=== PATIENT | female | born 1990 | race Caucasian/White ===

== ENCOUNTER 2023-06-24 11:41 | Emergency (ER) | payer OTHER, SELFPAY ==
[2023-06-24 11:58] VITALS: BP 133/80; PULSE 115; RESP 16; TEMP 37.5; O2SAT 99
--- NOTE | 2023-06-24 12:54 | ED.ABDPAIN ---
HPI - Abdominal Pain General Chief Complaint: Abdominal Pain Stated Complaint: right side pain,vomiting Time Seen by Provider: 06/24/23 12:58 Source: patient and RN notes reviewed Mode of arrival: ambulatory Limitations: no limitations History of Present Illness HPI narrative: 33-year-old female presenting for complaint of right-sided abdominal pain With nausea and vomiting since yesterday. Also reports decreased appetite. States the pain is improved only with lying flat. Pain is worse with walking up stairs, laughing, and certain movements. She has taken ibuprofen for symptoms without significant relief. She denies diarrhea, constipation, cough, shortness of breath or wheezing. Denies sick contacts. IUD in place. Related Data Home Medications Medication Instructions Recorded Confirmed bupropion HCl 300 mg 24 hr tablet, 300 mg PO DAILY 06/24/23 06/24/23 extended release dextroamphetamine-amphetamine 20 20 mg PO DAILY 06/24/23 06/24/23 mg tablet escitalopram oxalate 20 mg tablet 20 mg PO DAILY 06/24/23 06/24/23 Allergies Allergy/AdvReac Type Severity Reaction Status Date / Time No Known Allergies Allergy Verified 06/24/23 12:18 Review of Systems Review of Systems: CONSTITUTIONAL: Denies body aches, fever, reports chills ENT: Denies rhinorrhea, congestion CARDIOVASCULAR: Denies chest pain, palpitations, or edema. RESPIRATORY: Denies cough or dyspnea. GASTROINTESTINAL: Endorses right sided abdominal pain, nausea, vomiting Denies diarrhea, hematochezia, melena, hematemesis GENITOURINARY: Reports frequency Denies dysuria, hematuria, or CVA tenderness. SKIN: Denies rash, itching, or wounds. MUSCULOSKELETAL: Denies back pain, joint pain, or myalgia. NEUROLOGIC: Denies headache, numbness, tingling, or weakness. All systems reviewed & are unremarkable except as noted in HPI and below PMFSH Past Medical History Medical History (Updated 06/24/23 @ 13:17 by Jaquelin Banegas APRN) No pertinent past medical history Family History Family History Mother Depression Father Patient's father is in good health Social History Social History Alcohol intake: current Comments At time of signature, I have reviewed and agree with nursing past medical, surgical, social and family history unless otherwise noted. Please see nursing chart for further information. There is no relevant family history pertinent to the presenting complaint Exam Narrative: GENERAL: Well-appearing, and in no acute distress. EYES: EOMI. Conjunctivae normal. ENT: Mucous membranes pink and moist. CHEST: No respiratory distress. Clear to auscultation. HEART: Regular rate and rhythm. No murmur appreciated. Normal peripheral pulses. ABDOMEN: abd soft, nondistended, large, normal active bowel sounds. Tender abdomen to RUQ and RLQ, guarding noted, no rebound tenderness rigidity or asymmetry EXTREMITIES: Normal range of motion. No edema. SKIN: Warm, dry, no rash. Capillary refill normal. Normal skin turgor. NEURO: No focal deficits. Alert and oriented x3. PSYCH: Normal affect. Course Course Emergency Course: Patient is aware of diagnosis, understands and agrees to treatment plan. Anticipatory guidance given. Patient agrees to follow-up as directed and is aware of reasons to seek care at the emergency department. Portions of this record may have been created with voice recognition software Level of Care: Express Care Visit Vital Signs Vital signs: Vital Signs Temperature 99.5 F 06/24/23 11:58 Pulse Rate 115 H 06/24/23 11:58 Respiratory Rate 16 06/24/23 11:58 Blood Pressure 133/80 06/24/23 11:58 Pulse Oximetry 99 06/24/23 11:58 Oxygen Delivery Room Air 06/24/23 11:58 Temperature 99.5 F 06/24/23 11:58 Pulse Rate 115 H 06/24/23 11:58 Respiratory Rate 16 06/24/23 11:58 Blood Press
== END 2023-06-24 13:14 | disposition short-term general hospital (02) ==
PROVIDERS: Emergency Provider Nurse Practitioner Family
DX: R10.11 Right upper quadrant pain (principal); R10.31 Right lower quadrant pain
CPT/HCPCS: 81003; 99212; G0463

== ENCOUNTER 2023-06-24 13:55 | Observation (INO) | payer OTHER, SELFPAY ==
[2023-06-24] VITALS (8 sets, daily range): BP systolic 114–133; BP diastolic 65–98; PULSE 100–116; RESP 16–18; TEMP 36.7; O2SAT 99–100; BMI 36.1
--- NOTE | ~2023-06-24 | XR_ITS ---
EXAMINATION: XR chest 2V DATE: 06/24/2023 17:30 INDICATION: Right upper quadrant pain and vomiting TECHNIQUE: PA and lateral views of the chest were obtained. COMPARISON: Chest radiograph dated 01/18/2012 FINDINGS: The lungs are clear with no focal airspace opacities, pulmonary edema, pleural effusion or pneumothor ax. The cardiomediastinal silhouette is normal. The large staghorn calculus seen on prior CT at the u pper pole the right kidney can be seen projecting over the lumbar spine on the lateral projection. IMPRESSION: 1. No acute cardiopulmonary disease. 2. Left renal staghorn calculus. Reviewed, dictated and finalized at location A. RRAL SPECIALIST
--- NOTE | ~2023-06-24 | XR_ITS ---
EXAMINATION: XR retrograde pyelo w/stent RT DATE: 06/25/2023 9:30 PAINTER HELPER SIGN INDICATION: RIGHT STENT . TECHNIQUE: 3 fluoroscopic images, including 2 cine clips of 33 and 25 images of the right abdomen and pelvis were obtained during retrograde pyelography with stent placement performed by the surgeon. I was not present in the operating room. Fluoroscopy exposure time was 19.1 seconds. Air Kerma 9.48 mGy . DAP [id number] mGym2. COMPARISON: CT abdomen pelvis 06/24/2023 FINDINGS: IUD. Right upper pole staghorn calculus. Contrast fills a nondilated right urinary collecting system and a cine clips. Status post stent deployment, the proximal coil appears to terminate in the renal p lacy or upper pole, and may be unfolded, the distal coil projects over the bladder. IMPRESSION: Fluoroscopic documentation of right retrograde pyelography with stent placement. Please refer to the operative note for complete procedural details . Reviewed, dictated and finalized at location K. TER HELPER SIGN IMPRESSION: Fluoroscopic documentation of right retrograde pyelography with stent placement . Please refer to the operative note for complete procedural details .
--- NOTE | ~2023-06-24 | CT_ITS ---
EXAMINATION: CT abdomen pelvis wo con DATE: 06/24/2023 17:28 INDICATION: Right flank pain and hematuria. Urinary tract infection. TECHNIQUE: Computed tomography (CT) of the abdomen and pelvis was performed without intravenous contr ast. Automated exposure control and iterative reconstruction technique were employed. The dose-length product was 1354.17 mGy-cm. COMPARISON: None FINDINGS: Lung bases are clear. Heart size is normal. No pericardial or pleural effusion. Diffuse hepatic steat osis. Gallbladder, spleen, pancreas and bilateral adrenal glands are normal. Large staghorn calculus extending between a couple upper pole calyces of the right kidney which measures up to 3.0 x 2.5 x 1. 4 cm. There are couple additional stones in calyces of the upper pole of the right kidney measuring 1 0 mm and 8 mm. 3 mm stone at the distal right ureter 1 cm from the ureterovesicular junction. No asso ciated right-sided hydroureteronephrosis although there is urothelial thickening along the right uret er and some right perinephric stranding suggesting possible associated ascending urinary tract infect ion. There are some cortical scarring at the lower pole of the right kidney which could be related to prior infection or infarction. No left-sided urolithiasis or hydronephrosis. 1 cm left renal cyst. B owels including the appendix are normal. There is a T-shaped IUD positioned eccentrically within the uterus which appears to result from mass effect from a partially peripherally calcified fibroid in th e posterior uterine body. Bladder is unremarkable. No free intraperitoneal gas or fluid. No pathologi vincent enlarged abdominal or pelvic lymphadenopathy. Transitional partially sacralized L5 segment. 1.3 cm densely sclerotic lesion at the supra-acetabular right ilium which without correlate on radiograp hs from 02/09/2011. IMPRESSION: 1. Right nephrolithiasis including a large staghorn calculus at the upper pole and a 3 mm stone near the right ureterovesicular junction without hydronephrosis but with urothelial thickening along the r ight ureter suggesting possible ascending urinary tract infection. 2. Partially calcified fibroid in the posterior body of the uterus which exerts mass effect upon an I UD. 3. 1.3 cm densely sclerotic lesion at the supra-acetabular right ilium new since 2010, possibly a bon e island but could consider further evaluation with bone scan particularly if there is history of camilla or malignancy. 4. Diffuse hepatic steatosis. Reviewed, dictated and finalized at location A. TICE MANAGEMENT CONSULTANT IMPRESSION: 1. Right nephrolithiasis including a large staghorn calculus at the upper pole and a 3 mm stone near the right ureterovesicular junction without hydronephrosi s but with urothelial thickening along the right ureter suggesting possible asc ending urinary tract infection. 2. Partially calcified fibroid in the posterior body of the uterus which exerts mass effect upon an IUD. 3. 1.3 cm densely sclerotic lesion at the supra-acetabular right ilium new sin e 2010, possibly a bone island but could consider further evaluation with bone scan particularly if there is history of prior malignancy. 4. Diffuse hepatic steatosis.
[2023-06-24 14:50] LABS: Basophils Absolute Auto 0.1 K/mm3 (0.0-0.1); Basophils Percent Auto 0.4 % (0.2-1.2); Eosinophils Percent Auto 0.3 % (0-4.4); Hematocrit 42.7 % (37.0-47.0); Hemoglobin 13.9 g/dL (12.0-15.0); Immature Granulocyte Absolute 0.06 K/mm3 (0.00-0.031); Immature Granulocyte Percent A 0.4 % (0-0.5); Lymphocytes Absolute Auto 1.31 K/mm3 (0.9-3.2); Lymphocytes Percent Auto 9.3 % (18.3-44.2); Mean Corpuscular HGB Conc 32.6 g/dl (32-36); Mean Corpuscular Hemoglobin 28.1 pg (26-34); Mean Corpuscular Volume 86.3 fl (80-100); Mean Platelet Volume 9.7 fl (7.4-10.4); Monocytes Percent Auto 6.8 % (2.6-8.5); Neutrophils Absolute Auto 11.7 K/mm3 (1.3-6.7); Neutrophils Percent Auto 82.8 % (45.5-73.1); Platelet Count Result 336 k/mm3 (150-375); Red Blood Count 4.95 M/mm3 (4.2-5.4); White Blood Count 14.1 K/mm3 (4.5-10.0)
[2023-06-24 15:00] LABS: Alanine Aminotransferase 26 U/L (6-35); Albumin Level 4.6 g/dL (3.5-5.1); Alkaline Phosphatase 89 U/L (38-126); Anion Gap 10 mmol/L (8-16); Aspartate Amino Transferase 27 U/L (14-36); Bilirubin,Total 1.6 mg/dL (0.2-1.3); Blood Urea Nitrogen 11 mg/dL (7-17); Calcium 9.3 mg/dL (8.4-10.2); Carbon Dioxide 25 mmol/L (22-30); Chloride 102 mmol/L (98-107); Estimated CRCL calculation 102 ml/min; Estimated Glomerular Filt Rate > 60; Glucose 105 mg/dL (65-110); Lipase 65 U/L (23-300); Potassium 4.3 mmol/L (3.4-5.0); Sodium 137 mmol/L (137-145)
[2023-06-24 15:26] LABS: Influenza A QL RT-PCR Negative (Negative); Influenza B QL RT-PCR Negative (Negative); RSV RNA, RT-PCR Negative (Negative); SARS-CoV-2 RNA PCR Negative (Negative)
[2023-06-24 15:45] LABS: Appearance Urine Cloudy (Clear); Bacteria Urine 2+ /hpf; Bilirubin Urine Negative (Negative); Blood Urine 2+ (Negative); Color Urine Yellow (Yellow); Glucose Urine UA Negative (Negative); Ketones Urine 2+ mg/dL (Negative); Leukocyte Esterase Ur 3+ LEU/UL (Negative); Need Manual Microscopic Reviewed; Nitrate Urine Positive (Negative); Protein Urine 1+ mg/dL (Negative); Specific Grav Ur 1.021 (1.001-1.035); Squamous Epithelial Cell Urine Occasional /hpf (Few); WBC Urine >100 /hpf
[2023-06-24 15:47] LABS: Add Urine Microscopic? YES
--- NOTE | 2023-06-24 17:25 | ED.ABDPAIN ---
HPI - Abdominal Pain General Chief Complaint: Abdominal Pain <ISRRAEL Angelo Last Filed: 06/24/23 19:24> Stated Complaint: sent from [facility] pain <Carmen Macdonald PA-C - Last Filed: 06/24/23 19:24> Time Seen by Provider: 06/24/23 16:27 <Carmen Macdonald PA-C - Last Filed: 06/24/23 19:24> History of Present Illness HPI narrative: 33-year-old female reports for evaluation from urgent care for sudden-onset right sided flank pain and right upper quadrant abdominal pain started yesterday. Patient reports associated nausea, vomiting and chills. She states she has been having difficulty eating foods and fluids since symptoms started. She denies known fever, diarrhea, chest pain shortness breath, cough or congestion. Denies prior history of kidney stones. <ISRRAEL Angelo Last Filed: 06/24/23 19:24> Related Data Home Medications: Home Medications Medication Instructions Recorded Confirmed bupropion HCl 300 mg 24 hr tablet, 300 mg PO DAILY 06/24/23 06/24/23 extended release dextroamphetamine-amphetamine 20 20 mg PO DAILY 06/24/23 06/24/23 mg tablet escitalopram oxalate 20 mg tablet 20 mg PO DAILY 06/24/23 06/24/23 <Carmen Macdonald PA-C - Last Filed: 06/24/23 19:24> Allergies/Adverse Reactions: Allergies Allergy/AdvReac Type Severity Reaction Status Date / Time No Known Allergies Allergy Verified 06/24/23 13:55 <ISRRAEL Angelo Last Filed: 06/24/23 19:24> Review of Systems Review of Systems: CONSTITUTIONAL: see HPI EYES: Denies visual changes, redness, or discharge. ENT: Denies rhinorrhea, congestion, sore throat, or otalgia. CARDIOVASCULAR: Denies chest pain, palpitations, or edema. RESPIRATORY: Denies cough or dyspnea. GASTROINTESTINAL: See HPI GENITOURINARY: Denies dysuria or hematuria. SKIN: Denies rash or itching. MUSCULOSKELETAL: see HPi NEUROLOGIC: Denies headache, numbness, or weakness. PSYCHIATRIC: Denies anxiety or depression. <Carmen Macdonald PA-C - Last Filed: 06/24/23 19:24> [facility] Past Medical History Medical History: Medical History ADD (attention deficit disorder) Anxiety Depression <Carmen Macdonald PA-C - Last Filed: 06/24/23 19:24> Surgical History Surgical History: Surgical History History of adenoidectomy History of urologic surgery urinary reflux and UTIs as a child, surgery to fix at the age of 4 <ISRRAEL Angelo Last Filed: 06/24/23 19:24> Family History Family History: Family History Mother Depression Father Patient's father is in good health <Carmen Macdonald PA-C - Last Filed: 06/24/23 19:24> Social History Social History: Social History Smoking status: Never smoker Alcohol intake: current Substance use: never Substance use type: marijuana Do You Feel Safe in your Home?: Yes Lack of Transportation: No Lack of Food: Never True Current Housing: I Have Housing Concerned About Future Housing: No Difficulty Paying Gas/Electric Bills: No Difficulty Paying for Meds: No Currently Unemployed: No Education: Bachelor's Degree Difficulty w/ Childcare or Family Care: No Spiritual care concerns: No <Carmen Macdonald PA-C - Last Filed: 06/24/23 19:24> Exam Narrative: GENERAL: Well-appearing, well-nourished, and in no acute distress. patient resting comfortably in exam bed. She is pleasant and conversational. Non-toxic appearing HEAD: Normocephalic, atraumatic. EYES: PERRLA and EOMI. ENT: Nares clear, no rhinorrhea or epistaxis. Mucous membranes moist. NECK: Supple. CHEST: Clear to auscultation. No respiratory distress. HEART: Regular rate and rhythm. No murmur heard. Normal peripheral pulses. ABDOM
[2023-06-24] MEDS: MORPHINE SULFATE (*CRX) 4 MG/ML INJ IV PUSH (17:50)
[2023-06-24] MEDS: ONDANSETRON INJ 4 MG/2 ML VIAL IV PUSH ×2 (17:51→20:57)
[2023-06-24] MEDS: SODIUM CHLORIDE 0.9% IV 1,000 ML 999 ML IV CONT ×2 (17:51→20:46)
[2023-06-24 18:38] LABS: Lactic Acid Reflex 0.9 mmol/L (0.7-2.0)
--- NOTE | 2023-06-24 19:17 | PC.NURSE ---
Assumed care of pt from TACO Mann.
--- NOTE | 2023-06-24 21:37 | ADMGEN ---
This patient, Laine Mckee, was admitted to Medical Room 347-01. Patient/family oriented to hospital policies and general routines including ID bracelet, bed and alarms, visiting hours, pain management, procedures, bathroom and other care routines, personal items, smoking policy, room service/diet, and visiting hours. Information on how to activate the Rapid Response Team has been discussed. Patient/Family are encouraged to report perceived risks to care and to ask questions if they do not understand what they are told or what they should do.
[2023-06-24] MEDS: LACTATED RINGERS 1,000 ML 125 ML IV CONT (22:05)
[2023-06-24] MEDS: HYDROcodone/acetaminophen (*CRX) 5-325 MG TABLET 1 TAB PO (22:09)
--- NOTE | 2023-06-24 22:28 | PM.IMHP ---
H&P: HPI History of Present Illness Date/Time: 06/24/23 22:28 Chief Complaint: Flank/Abdominal Pain Narrative: 33-year-old female presents here with right lower quadrant pain, reduced appetite, nausea and vomiting with past medical history of anxiety, depression, ADD, previous urology surgery for reflux as a child, and adenoidectomy. Patient reports she initially began experiencing nausea and vomiting yesterday around lunch time. She was out with her family for a beer and lunch when she was unable to tolerate food or drink. Had multiple episodes of nausea and vomiting on the drive home. developed frontal abdominal pain near umbilicus. When she got back to her mother's house (patient is from [place] and visiting) she took naproxen and Pepto-Bismol without relief. Abdominal pain then began to localize to her R lateral abdomen just beneath the border of her ribcage with some radiation into her back. Experienced insomnia through the night due to the severity of pain. then today presented to in local [facility] where she was directed to come to the emergency department for further imaging. ED workup here revealed WBC of 14.1, elevated neutrophils, total bilirubin of 1.6, UA indicative of UTI and viral PCR negative. CT of the abdomen pelvis showed finding suggestive of possible ascending UTI, fibroid exerting mass effect upon UTI, 1.3 cm densely sclerotic lesion that is new since 16/05, and diffuse hepatic steatosis. Review of Systems Review of Systems: All systems reviewed & are unremarkable except as noted in HPI and below PMFSH Past Medical History Medical History ADD (attention deficit disorder) Anxiety Depression Surgical History Surgical History History of adenoidectomy History of urologic surgery urinary reflux and UTIs as a child, surgery to fix at the age of 4 Family History Family History Mother Depression Father Patient's father is in good health Social History Social History Smoking status: Never smoker Alcohol intake: current Substance use: never Substance use type: marijuana Do You Feel Safe in your Home?: Yes Lack of Transportation: No Lack of Food: Never True Current Housing: I Have Housing Concerned About Future Housing: No Difficulty Paying Gas/Electric Bills: No Difficulty Paying for Meds: No Currently Unemployed: No Education: Bachelor's Degree Difficulty w/ Childcare or Family Care: No Spiritual care concerns: No Meds Home Medications and Allergies Home Medications Medication Instructions Recorded Confirmed Type bupropion HCl 300 mg 24 hr tablet, 300 mg PO DAILY 06/24/23 06/24/23 History extended release dextroamphetamine-amphetamine 20 20 mg PO DAILY 06/24/23 06/24/23 History mg tablet escitalopram oxalate 20 mg tablet 20 mg PO DAILY 06/24/23 06/24/23 History Allergies Allergy/AdvReac Type Severity Reaction Status Date / Time No Known Allergies Allergy Verified 06/24/23 13:55 Vital Signs Vital Signs - 24 hr 06/24/23 14:23 06/24/23 17:01 06/24/23 18:28 Temperature 98.0 F Pulse Rate 100 Respiratory Rate 18 Blood Pressure 130/94 H 114/72 133/73 Pulse Oximetry 100 100 Oxygen Delivery 06/24/23 18:31 06/24/23 18:32 06/24/23 20:47 Temperature Pulse Rate Respiratory Rate 16 Blood Pressure 117/98 H 116/76 Pulse Oximetry 100 99 100 Oxygen Delivery 06/24/23 22:11 06/24/23 21:53 06/24/23 22:24 Temperature 98.0 F Pulse Rate 116 H 110 H Respiratory Rate 18 Blood Pressure 124/65 Pulse Oximetry 99 Oxygen Delivery Room Air Exam Const: General: comfortable and no acute distress HENMT: Face/Nose/Sinus: Normal nares present Mouth: Yes moist mucous membranes E
[2023-06-25] VITALS (13 sets, daily range): BP systolic 91–116; BP diastolic 49–86; PULSE 76–113; RESP 14–18; TEMP 36.1–37; O2SAT 96–100
[2023-06-25] MEDS: LACTATED RINGERS 1,000 ML 125 ML IV CONT (05:34)
[2023-06-25] MEDS: HYDROcodone/acetaminophen (*CRX) 5-325 MG TABLET 1 TAB PO ×2 (05:34→17:18)
[2023-06-25 05:58] LABS: Basophils Percent Auto 0.2 % (0.2-1.2); Eosinophils Percent Auto 0.1 % (0-4.4); Hematocrit 37.7 % (37.0-47.0); Hemoglobin 12.1 g/dL (12.0-15.0); INR 1.1; Immature Granulocyte Absolute 0.03 K/mm3 (0.00-0.031); Immature Granulocyte Percent A 0.3 % (0-0.5); Lymphocytes Absolute Auto 0.64 K/mm3 (0.9-3.2); Lymphocytes Percent Auto 6.2 % (18.3-44.2); Mean Corpuscular HGB Conc 32.1 g/dl (32-36); Mean Corpuscular Volume 87.3 fl (80-100); Mean Platelet Volume 9.9 fl (7.4-10.4); Monocytes Absolute Auto 0.9 K/mm3 (0.1-0.6); Monocytes Percent Auto 8.5 % (2.6-8.5); Neutrophils Absolute Auto 8.7 K/mm3 (1.3-6.7); Neutrophils Percent Auto 84.7 % (45.5-73.1); Platelet Count Result 240 k/mm3 (150-375); Prothrombin Time 14.6 Seconds (11.1-14.7); Red Blood Count 4.32 M/mm3 (4.2-5.4); White Blood Count 10.3 K/mm3 (4.5-10.0)
[2023-06-25 05:59] LABS: Partial Thromboplastin Time 39.3 SECONDS (22.3-36.8)
[2023-06-25 06:03] LABS: Anion Gap 7 mmol/L (8-16); Blood Urea Nitrogen 7 mg/dL (7-17); Calcium 8.5 mg/dL (8.4-10.2); Carbon Dioxide 21 mmol/L (22-30); Chloride 106 mmol/L (98-107); Cholesterol 218 mg/dL (0-200); Estimated CRCL calculation 103 ml/min; Estimated Glomerular Filt Rate > 60; Glucose 115 mg/dL (65-110); HDL Direct 48 mg/dL; Hemoglobin A1C 5.1 % (<5.7); Potassium 3.7 mmol/L (3.4-5.0); Sodium 134 mmol/L (137-145); Triglycerides 95 mg/dL (<150)
[2023-06-25 06:09] LABS: Lactic Acid Reflex 0.6 mmol/L (0.7-2.0)
[2023-06-25 06:14] LABS: LDL Cholesterol Direct 123 mg/dL
[2023-06-25 07:29] LABS: Hepatitis C Virus Antibody Negative (Negative)
--- NOTE | 2023-06-25 08:47 | PM.IMPN ---
Progress Note: A&P Assessment and Plan (1) UTI (urinary tract infection): Qualifiers: Hematuria presence: with hematuria Urinary tract infection type: acute cystitis Qualified Code(s): N30.01 - Acute cystitis with hematuria Code(s): N39.0 - Urinary tract infection, site not specified Status: Acute (2) Ureterolithiasis: Code(s): N20.1 - Calculus of ureter Status: Acute (3) Fibroid, uterine: Qualifiers: Uterine leiomyoma location: unspecified location Qualified Code(s): D25.9 - Leiomyoma of uterus, unspecified Code(s): D25.9 - Leiomyoma of uterus, unspecified Status: Acute (4) Hepatic steatosis: Code(s): K76.0 - Fatty (change of) liver, not elsewhere classified Status: Acute (5) Bone lesion: Code(s): M89.9 - Disorder of bone, unspecified Status: Acute Plan 33-year-old female for right-sided flank pain right upper quadrant associated nausea and chills History of ADD anxiety depression Workup revealed leukocytosis 14 point normal LFTs except for bilirubin 1 6 UA positive for UTI with hematuria. COVID flu RSV negative. Chest x-ray without acute cardiopulmonary abnormality. negative CT abdomen pelvis showed right nephrolithiasis including a large staghorn calculus of the upper pole and 3 mm stone near the right UVJ without hydronephrosis but with urothelial thickening along the right ureter suggesting possible ascending ureter tract infection. Lactic acid is normal. Blood cultures were obtained. Status post right ureteral stent placement. Partially calcified fibroid in posterior body of the uterus which exerts mass effect on IUD. Follow-up as an outpatient basis 1.3 cm densely sclerotic lesion in the supra-acetabular right ilium new since 2010 possibly a bone island but could consider further evaluation with bone scan. Diffuse hepatic steatosis Urology has been consulted. Ceftriaxone started follow urine culture. DVT Prophylaxis Subjective Date/time seen: 06/25/23 08:47 Interval history: 33-year-old female for right-sided flank pain right upper quadrant associated nausea and chills History of ADD anxiety depression Workup revealed leukocytosis 14 point normal LFTs except for bilirubin 1 6 UA positive for UTI with hematuria. COVID flu RSV negative. Chest x-ray without acute cardiopulmonary abnormality. negative CT abdomen pelvis showed right nephrolithiasis including a large staghorn calculus of the upper pole and 3 mm stone near the right UVJ without hydronephrosis but with urothelial thickening along the right ureter suggesting possible ascending ureter tract infection. Lactic acid is normal. Blood cultures were obtained. Partially calcified fibroid in posterior body of the uterus which exerts mass effect on IUD. Follow-up as an outpatient basis 1.3 cm densely sclerotic lesion in the supra-acetabular right ilium new since 2010 possibly a bone island but could consider further evaluation with bone scan. Diffuse hepatic steatosis Urology has been consulted. Ceftriaxone started follow urine culture. DVT Prophylaxis Review of Systems Review of Systems: All systems reviewed & are unremarkable except as noted in HPI and below Exam Narrative: GENERAL: Well-appearing, well-nourished, and in no acute distress. patient resting comfortably in exam bed.? She is pleasant and conversational. Non-toxic appearing HEAD: Normocephalic, atraumatic. EYES: PERRLA and EOMI. ENT: Nares clear, no rhinorrhea or epistaxis. Mucous membranes moist. NECK: Supple. CHEST: Clear to auscultation. No respiratory distress. HEART: Regular rate and rhythm. No murmur heard. Normal peripheral pulses. ABDOMEN: ? Normoactive bowel sounds.? Abdomen soft nontender No guarding, rebound or rigidity.? No CVA tenderness. negative Holman's.? No overlying skin changes. EXTREMITIES: Normal range of motion. No edema. SKIN: Warm, dry, no rash. NEURO: No focal defi
--- NOTE | 2023-06-25 08:52 | WPDURCON ---
Assessment and Plan Assessment and plan (1) Calculus of lower third of ureter: Code(s): N20.1 - Calculus of ureter Status: Acute Assessment and Plan: Will plan on ureteral stent today. She understands I will not be removing her stones. She understands she will need urologic follow-up to deal with the stent and the stone when she returns home to [place]. We discussed risks, benefits, alternatives. She understands risks of bleeding, infection, damage to the urinary tract, inability to place the stent. She agrees to proceed (2) Calculus, kidney: Code(s): N20.0 - Calculus of kidney Status: Acute Assessment and Plan: This will also need to be addressed on an outpatient basis (3) Abnormal urinalysis: Code(s): R82.90 - Unspecified abnormal findings in urine Status: Acute Assessment and Plan: No overt signs and symptoms of urinary tract infection. Urine culture pending. Treat based on results (4) History of vesicoureteral reflux: Code(s): Z87.448 - Personal history of other diseases of urinary system Status: Acute Assessment and Plan: Need to define better with procedure was done at age 4. Open versus endoscopic Urology Consult Note HPI Date Seen: 06/25/23 Requesting Physician: Nela Adrian MD Primary Care Provider: UNKNOWN,DOCTOR Consult Narrative Narrative: Laine Mckee is a 33 year old female with no prior history of stone disease. She had vague right-sided abdominal pain which started on . It 10 satisfied Tuesday and prompted a visit to the emergency room. A CT scan was done which showed large stone burden her right kidney as well as a distal ureteral stone without hydronephrosis. The official read says it is 3 mm. It looks a bit larger the 5 mm range to me. She has an abnormal urinalysis. She has no prominent symptoms of urinary tract infection. She has no visible blood in the urine. She has no dysuria. She states she has no fever but did notice some chills but has not so in the last 12-24 hours. She is receiving IV pain medicine which is controlling her pain. In light of the stone and the abnormal urinalysis we will plan on ureteral stenting. We will need to await urine culture before discharge. If positive will need to be on culture specific antibiotics. Of note she is from [facility] and will be returning home in a few days. She understands she will need outpatient urologic follow-up at home to do with the stent as well as the ureteral stone. Of note she had a vesicoureteral reflux procedure done at age 4. I will need to further define whether this was a endoscopic or open procedure Review of Systems Review of Systems: All systems reviewed & are unremarkable except as noted in HPI and below PMFSH Past Medical History Medical History ADD (attention deficit disorder) Anxiety Depression Surgical History Surgical History History of adenoidectomy History of urologic surgery urinary reflux and UTIs as a child, surgery to fix at the age of 4 Family History Family History Mother Depression Father Patient's father is in good health Social History Social History Smoking status: Never smoker Alcohol intake: current Substance use: never Substance use type: marijuana Do You Feel Safe in your Home?: Yes Lack of Transportation: No Lack of Food: Never True Current Housing: I Have Housing Concerned About Future Housing: No Difficulty Paying Gas/Electric Bills: No Difficulty Paying for Meds: No Currently Unemployed: No Education: Bachelor's Degree Difficulty w/ Childcare or Family Care: No Spiritual care concerns: No Meds Home Medications and Allergies Ho
--- NOTE | 2023-06-25 09:09 | WPDANESEPPF ---
Anes - Initial Pre Proc Eval Procedure: Operation Date: 06/25/23 10:30 Proposed Procedures p Cysto, RPG, Stone Ext, Stent Placement(Right) - Damon Burrell MD Date/Time: 06/25/23 09:09 Surgeon: Ashanti Pre Op Diagnosis: uti, ureterolithiasis Patient Data Age: 33 Gender: F Height: 1.68 m Weight: 101.5 kg Last Vital Signs Temp 36.6 C 06/25/23 05:54 Pulse 93 06/25/23 05:54 Resp 14 06/25/23 05:54 BP 108/74 06/25/23 05:54 Pulse Ox 96 06/25/23 05:54 O2 Del Method Room Air 06/24/23 22:11 Allergies Allergy/AdvReac Type Severity Reaction Status Date / Time No Known Allergies Allergy Verified 06/24/23 13:55 Home Medications Medication Instructions Recorded Confirmed Type bupropion HCl 300 mg 24 hr tablet, 300 mg PO DAILY 06/24/23 06/24/23 History extended release dextroamphetamine-amphetamine 20 20 mg PO DAILY 06/24/23 06/24/23 History mg tablet escitalopram oxalate 20 mg tablet 20 mg PO DAILY 06/24/23 06/24/23 History Laboratory Tests 06/24/23 06/24/23 06/24/23 14:38 15:07 18:23 WBC 14.1 H K/mm3 (4.5-10.0) RBC 4.95 M/mm3 (4.2-5.4) Hgb 13.9 g/dL (12.0-15.0) Hct 42.7 % (37.0-47.0) MCV 86.3 fl (80-100) MCH 28.1 pg (26-34) MCHC 32.6 g/dl (32-36) RDW 13.0 % (11.5-14.5) Plt Count 336 k/mm3 (150-375) MPV 9.7 fl (7.4-10.4) Immature Gran % (Auto) 0.4 % (0-0.5) Neut % (Auto) 82.8 H % (45.5-73.1) Lymph % (Auto) 9.3 L % (18.3-44.2) [place] % (Auto) 6.8 % (2.6-8.5) Eos % (Auto) 0.3 % (0-4.4) Baso % (Auto) 0.4 % (0.2-1.2) Lymph # (Auto) 1.31 K/mm3 (0.9-3.2) [place] # (Auto) 1.0 H K/mm3 (0.1-0.6) Eos # (Auto) 0.0 K/mm3 (0-0.3) Baso # (Auto) 0.1 K/mm3 (0.0-0.1) Abs Immat Gran (auto) 0.06 H K/mm3 (0.00-0.031) Absolute Neuts (auto) 11.7 H K/mm3 (1.3-6.7) Absolute Nucleated RBC 0.0 K/mm3 (0.0-0.012) Nucleated RBC % 0.0 % (0.0-0.2) PT INR APTT Sodium 137 mmol/L (137-145) Potassium 4.3 mmol/L (3.4-5.0) Chloride 102 mmol/L (98-107) Carbon Dioxide 25 mmol/L (22-30) Anion Gap 10 mmol/L (8-16) BUN 11 mg/dL (7-17) Creatinine 0.80 mg/dL (0.7-1.0) Estim Creat Clear Calc 102 ml/min Estimated GFR > 60 (59 - ) Glucose 105 mg/dL (65-110) Hemoglobin A1c Lactic Acid 0.9 mmol/L (0.7-2.0) Calcium 9.3 mg/dL (8.4-10.2) Total Bilirubin 1.6 H mg/dL (0.2-1.3) AST 27 U/L (14-36) ALT 26 U/L (6-35) Alkaline Phosphatase 89 U/L (38-126) Total Protein 8.0 g/dL (6.3-8.2) Albumin 4.6 g/dL (3.5-5.1) Triglycerides Cholesterol LDL Cholesterol Direct HDL Direct Lipase 65 U/L (23-300) Urine Color Yellow (Yellow) Urine Appearance Cloudy H (Clear) Urine pH 7.0 (5.0-9.0) Ur Specific [place] 1.021 (1.001-1.035) Urine Protein 1+ H mg/dL (Negative) Urine Glucose (UA) Negative mg/dL (Negative) Urine Ketones 2+ H mg/dL (Negative) Ur Blood (Man) 2+ H (Negative) Urine Nitrate Positive H (Negative) Urine Bilirubin Negative (Negative) Urine Urobilinogen 1.0 mg/dL (<2.0) Add Ur Microanalysis Reviewed Leukocyte Esterase Rfl 3+ H MAYNOR/UL (Negative) Urine RBC 11-20 H /hpf (0-2) Urine WBC >100 H /hpf Ur Squamous Epith Cells Occasional /hpf (Few) Urine Bacteria 2+ H /hpf Urine Casts 3-5 Hepatitis C Ab Screen
--- NOTE | 2023-06-25 10:00 | W.PM.PROC2 ---
Procedure Note - Detailed Date of Procedure 06/25/23 Pre-op Diagnosis Right ureteral stone, abnormal urinalysis Post-op Diagnosis Same Procedure Performed Cystoscopy, right retrograde pyelogram, right ureteral stent placement Surgeon Damon Burrell MD Anesthesia General and Local (Lidocaine jelly) Findings Uncomplicated right ureteral stent placement Renal stones not visible Description of Procedure She was correctly identified. Informed consent obtained. She from the operating room. She was given general anesthesia. She was prepped and draped sterile fashion. She was already on appropriate perioperative antibiotics. A time-out performed. Cystoscopy revealed a normal-appearing bladder. There was no redness or signs of infection. There was no surgical artifact which would be consistent with a ureteral reflux surgery. There is no tumors or trabeculations. 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 I shot a gentle retrograde pyelogram on the right. There is no hydronephrosis. There was also no hydronephrosis on her CT scan. I did not clearly see a filling defect of the ureteral stone. I placed a guidewire to the kidney. Some cloudy appearing urine did appear to come from the ureter once the guidewire was placed. I gently placed a 4.8 variable length stent. Proximal coil in the upper pole kidney. Distal coil in the bladder. The bladder was drained. She was awakened transferred to PACU in stable condition. Implants 4.8 variable length stent Estimated Blood Loss 0 Complications No immediate complications Condition Stable Disposition PACU
[2023-06-25] MEDS: LACTATED RINGERS 1,000 ML 30 ML IV CONT ×2 (10:01→10:49)
[2023-06-25] MEDS: MORPHINE SULFATE (*CRX) 4 MG/ML INJ IV PUSH ×2 (15:04→21:43)
[2023-06-25] MEDS: ONDANSETRON INJ 4 MG/2 ML VIAL IV PUSH (15:06)
[2023-06-26] VITALS (8 sets, daily range): BP systolic 108–127; BP diastolic 76–88; PULSE 70–112; RESP 14–20; TEMP 36.6–37.1; O2SAT 95–100
[2023-06-26 05:55] LABS: Basophils Percent Auto 0.5 % (0.2-1.2); Eosinophils Percent Auto 0.5 % (0-4.4); Hematocrit 36.4 % (37.0-47.0); Hemoglobin 11.8 g/dL (12.0-15.0); Immature Granulocyte Absolute 0.04 K/mm3 (0.00-0.031); Immature Granulocyte Percent A 0.5 % (0-0.5); Lymphocytes Percent Auto 18.7 % (18.3-44.2); Mean Corpuscular HGB Conc 32.4 g/dl (32-36); Mean Corpuscular Hemoglobin 28.2 pg (26-34); Mean Corpuscular Volume 87.1 fl (80-100); Mean Platelet Volume 9.9 fl (7.4-10.4); Monocytes Percent Auto 13.9 % (2.6-8.5); Neutrophils Absolute Auto 4.9 K/mm3 (1.3-6.7); Neutrophils Percent Auto 65.9 % (45.5-73.1); Platelet Count Result 227 k/mm3 (150-375); Red Blood Count 4.18 M/mm3 (4.2-5.4); Red Cell Distribution Width 13.1 % (11.5-14.5); White Blood Count 7.5 K/mm3 (4.5-10.0)
[2023-06-26 06:21] LABS: Alanine Aminotransferase 28 U/L (6-35); Albumin Level 3.6 g/dL (3.5-5.1); Alkaline Phosphatase 72 U/L (38-126); Anion Gap 8 mmol/L (8-16); Aspartate Amino Transferase 34 U/L (14-36); Bilirubin,Total 0.7 mg/dL (0.2-1.3); Blood Urea Nitrogen 5 mg/dL (7-17); Calcium 8.5 mg/dL (8.4-10.2); Carbon Dioxide 24 mmol/L (22-30); Chloride 102 mmol/L (98-107); Estimated CRCL calculation 103 ml/min; Estimated Glomerular Filt Rate > 60; Glucose 102 mg/dL (65-110); Magnesium 1.9 mg/dL (1.6-2.3); Potassium 3.5 mmol/L (3.4-5.0); Sodium 134 mmol/L (137-145)
[2023-06-26] MEDS: buPROPion HCL XL (24 HR) 150 MG TABCR 300 MG PO (10:49)
[2023-06-26] MEDS: ESCITALOPRAM OXALATE 10 MG TABLET 20 MG PO (10:49)
[2023-06-26] MEDS: HYDROcodone/acetaminophen (*CRX) 5-325 MG TABLET 1 TAB PO ×2 (10:52→17:03)
[2023-06-26] MEDS: ONDANSETRON INJ 4 MG/2 ML VIAL IV PUSH ×3 (12:20→22:43)
--- NOTE | 2023-06-26 14:38 | PM.IMPN ---
Progress Note: A&P Assessment and Plan (1) UTI (urinary tract infection): Qualifiers: Hematuria presence: with hematuria Urinary tract infection type: acute cystitis Qualified Code(s): N30.01 - Acute cystitis with hematuria Code(s): N39.0 - Urinary tract infection, site not specified Status: Acute (2) Ureterolithiasis: Code(s): N20.1 - Calculus of ureter Status: Acute (3) Fibroid, uterine: Qualifiers: Uterine leiomyoma location: unspecified location Qualified Code(s): D25.9 - Leiomyoma of uterus, unspecified Code(s): D25.9 - Leiomyoma of uterus, unspecified Status: Acute (4) Hepatic steatosis: Code(s): K76.0 - Fatty (change of) liver, not elsewhere classified Status: Acute (5) Bone lesion: Code(s): M89.9 - Disorder of bone, unspecified Status: Acute Plan 33-year-old female for right-sided flank pain right upper quadrant associated nausea and chills History of ADD anxiety depression Workup revealed leukocytosis 14 point normal LFTs except for bilirubin 1 6 UA positive for UTI with hematuria. COVID flu RSV negative. Chest x-ray without acute cardiopulmonary abnormality. negative CT abdomen pelvis showed right nephrolithiasis including a large staghorn calculus of the upper pole and 3 mm stone near the right UVJ without hydronephrosis but with urothelial thickening along the right ureter suggesting possible ascending ureter tract infection. Lactic acid is normal. Blood cultures were obtained. Status post right ureteral stent placement. Blood culture no growth to date urine culture no growth to date Partially calcified fibroid in posterior body of the uterus which exerts mass effect on IUD. Follow-up as an outpatient basis 1.3 cm densely sclerotic lesion in the supra-acetabular right ilium new since 2010 possibly a bone island but could consider further evaluation with bone scan as outpatient basis. Diffuse hepatic steatosis Urology has been consulted. Ceftriaxone started follow urine culture. DVT Prophylaxis Subjective Date/time seen: 06/26/23 14:38 Interval history: 33-year-old female for right-sided flank pain right upper quadrant associated nausea and chills History of ADD anxiety depression Workup revealed leukocytosis 14 point normal LFTs except for bilirubin 1 6 UA positive for UTI with hematuria. COVID flu RSV negative. Chest x-ray without acute cardiopulmonary abnormality. negative CT abdomen pelvis showed right nephrolithiasis including a large staghorn calculus of the upper pole and 3 mm stone near the right UVJ without hydronephrosis but with urothelial thickening along the right ureter suggesting possible ascending ureter tract infection. Lactic acid is normal. Blood cultures were obtained. Partially calcified fibroid in posterior body of the uterus which exerts mass effect on IUD. Follow-up as an outpatient basis 1.3 cm densely sclerotic lesion in the supra-acetabular right ilium new since 2010 possibly a bone island but could consider further evaluation with bone scan. Diffuse hepatic steatosis Urology has been consulted. Ceftriaxone started follow urine culture. DVT Prophylaxis 06/26/2023: Feeling better. Still some discomfort in the lower abdomen. No nausea vomiting no fever. Cultures pending. Labs reviewed Review of Systems Review of Systems: All systems reviewed & are unremarkable except as noted in HPI and below Exam Narrative: GENERAL: Well-appearing, well-nourished, and in no acute distress. patient resting comfortably in exam bed.? She is pleasant and conversational. Non-toxic appearing HEAD: Normocephalic, atraumatic. EYES: PERRLA and EOMI. ENT: Nares clear, no rhinorrhea or epistaxis. Mucous membranes moist. NECK: Supple. CHEST: Clear to auscultation. No respiratory distress. HEART: Regular rate and rhythm. No murmur heard. Normal peripheral pulses. ABDOMEN: ? Normoactive bowel kei
[2023-06-26] MEDS: ACETAMINOPHEN 325 MG TABLET 650 MG PO (15:08)
[2023-06-27] VITALS: PULSE 95
[2023-06-27 04:00] VITALS: PULSE 67
[2023-06-27 05:46] LABS: Basophils Percent Auto 0.5 % (0.2-1.2); Eosinophils Absolute Auto 0.1 K/mm3 (0-0.3); Eosinophils Percent Auto 2.5 % (0-4.4); Hematocrit 34.1 % (37.0-47.0); Hemoglobin 11.1 g/dL (12.0-15.0); Immature Granulocyte Absolute 0.01 K/mm3 (0.00-0.031); Immature Granulocyte Percent A 0.2 % (0-0.5); Lymphocytes Absolute Auto 1.59 K/mm3 (0.9-3.2); Lymphocytes Percent Auto 28.7 % (18.3-44.2); Mean Corpuscular HGB Conc 32.6 g/dl (32-36); Mean Corpuscular Hemoglobin 28.1 pg (26-34); Mean Corpuscular Volume 86.3 fl (80-100); Mean Platelet Volume 10.1 fl (7.4-10.4); Monocytes Absolute Auto 0.7 K/mm3 (0.1-0.6); Monocytes Percent Auto 13.4 % (2.6-8.5); Neutrophils Percent Auto 54.7 % (45.5-73.1); Platelet Count Result 232 k/mm3 (150-375); Red Blood Count 3.95 M/mm3 (4.2-5.4); Red Cell Distribution Width 12.6 % (11.5-14.5); White Blood Count 5.5 K/mm3 (4.5-10.0)
[2023-06-27 05:57] LABS: Alanine Aminotransferase 35 U/L (6-35); Albumin Level 3.7 g/dL (3.5-5.1); Alkaline Phosphatase 73 U/L (38-126); Anion Gap 6 mmol/L (8-16); Aspartate Amino Transferase 32 U/L (14-36); Bilirubin,Total 0.5 mg/dL (0.2-1.3); Blood Urea Nitrogen 7 mg/dL (7-17); Calcium 8.9 mg/dL (8.4-10.2); Carbon Dioxide 26 mmol/L (22-30); Chloride 104 mmol/L (98-107); Estimated CRCL calculation 116 ml/min; Estimated Glomerular Filt Rate > 60; Glucose 100 mg/dL (65-110); Potassium 3.4 mmol/L (3.4-5.0); Sodium 136 mmol/L (137-145)
[2023-06-27 06:00] VITALS: BP 135/91; PULSE 72; RESP 70; TEMP 36.9; O2SAT 99
[2023-06-27 08:00] VITALS: PULSE 108
[2023-06-27] MEDS: buPROPion HCL XL (24 HR) 150 MG TABCR 300 MG PO (09:05)
[2023-06-27] MEDS: ESCITALOPRAM OXALATE 10 MG TABLET 20 MG PO (09:06)
[2023-06-27 12:00] VITALS: PULSE 94
--- NOTE | 2023-06-27 13:04 | WPDUROPN2 ---
Subjective Subjective Date/Time Seen: 06/27/23 13:04 Interval history: UCX Proteus sensitive to oral ABX. Home on 2 weeks PO abx with Urologic f/u in [place] Objective Data Vital Signs Vital Signs: Vital Signs - 24 hr 06/26/23 15:14 06/26/23 16:04 06/26/23 22:07 Temperature 97.8 F 98.6 F Pulse Rate 89 78 77 Respiratory Rate 18 20 Blood Pressure 127/88 117/88 Pulse Oximetry 100 98 Oxygen Delivery 06/26/23 20:00 06/27/23 00:00 06/27/23 04:00 Temperature Pulse Rate 112 H 95 67 Respiratory Rate Blood Pressure Pulse Oximetry Oxygen Delivery 06/27/23 06:00 06/27/23 09:00 Temperature 98.4 F Pulse Rate 72 Respiratory Rate 70 H Blood Pressure 135/91 H Pulse Oximetry 99 Oxygen Delivery Room Air Intake/Output Intake/Output: Intake & Output 06/24/23 06/25/23 06/26/23 06/27/23 23:59 23:59 23:59 23:59 Intake Total 2050 2890 1022 440 Output Total 1900 1815 700 Balance 2049 997 -790 -245 Meds/Results Medications: Active Medications Generic Name Dose Route Start Last Admin Trade Name Freq PRN Reason Stop Dose Admin Acetaminophen 650 mg 06/24/23 21:56 06/26/23 15:08 Acetaminophen 325 Mg Tablet PO 650 mg Q4H PRN Administration Mild Pain (1-3) or Fever Hydrocodone Bitart/Acetaminophen 1 tab 06/24/23 21:57 06/26/23 17:03 Hydrocodone/Acetaminophen (*Crx) 5-325 Mg Tablet PO 1 tab Q6H PRN Administration Pain Rated 4-6 Bupropion HCl 300 mg 06/25/23 09:00 06/27/23 09:05 Bupropion Hcl Xl (24 Hr) 150 Mg Tabcr PO 300 mg DAILY KELI Administration Escitalopram Oxalate 20 mg 06/25/23 09:00 06/27/23 09:06 Escitalopram Oxalate 10 Mg Tablet PO 20 mg DAILY KELI Administration Ceftriaxone Sodium 1 gm in 50 mls @ 100 mls/hr 06/25/23 18:00 06/26/23 17:05 Rocephin 1 Gm/Ns 50 Ml IVPB 100 mls/hr Q24H KELI Administration Miscellaneous Information 1 each 06/25/23 00:01 Dextroamphetamine-Amphetamine 20 Mg Tablet Is Nonformulary. Can She Use Home Supply? XX 07/25/23 00:00 CLARIFY COUNT INCLUDES THE [facility] Morphine Sulfate 4 mg 06/24/23 19:24 06/25/23 21:43 Morphine Sulfate (*Crx) 4 Mg/Ml Inj IV PUSH 4 mg Q2H PRN Administration Pain Rated 7-10 Non-Formulary Medication 20 mg 06/26/23 09:00 Dextroamphetamine-Amphetamine PO 07/26/23 08:59 DAILY COUNT INCLUDES THE [facility] Ondansetron HCl 4 mg 06/24/23 19:24 06/26/23 22:43 Ondansetron Inj 4 Mg/2 Ml Vial IV PUSH 4 mg Q4H PRN Administration Nausea Oxybutynin Chloride 5 mg 06/25/23 10:54 Oxybutynin Chloride 5 Mg Tablet PO TID PRN Abdominal Cramping/Bladder Radiology Results: ITS Impressions Abdomen/Pelvis CT 06/24/23 17:31 IMPRESSION: 1. Right nephrolithiasis including a large staghorn calculus at the upper pole and a 3 mm stone near the right ureterovesicular junction without hydronephrosis but with urothelial thickening along the right ureter suggesting possible ascending urinary tract infection. 2. Partially calcified fibroid in the posterior body of the uterus which exerts mass effect upon an IUD. 3. 1.3 cm densely sclerotic lesion at the supra-acetabular right ilium new since 2010, possibly a bone island but could consider further evaluation with bone scan particularly if there is history of prior malignancy. 4. Diffuse hepatic steatosis. Chest X-Ray 06/24/23 17:41 IMPRESSION: 1. No acute cardiopulmonary disease. 2. Left renal staghorn calculus. ADDENDUM: 06/24/23 [id number] CORRECTION: There is a dictation error in the impression section. With the correction capitalized this should read- 2. RIGHT renal staghorn calculus. Retrograde Pyelogram 06/25/23 14:13 IMPRESSION: Fluoroscopic documentation of right retrograde pyelography with stent placement. Please refer to the operative note for complete procedural details . Labs Labs: Laboratory Results - last 24 hr 06/27/23 05:27 WBC 5.5 RBC 3.95 L Hgb 11.1 L Hct 34.
--- NOTE | 2023-06-27 13:08 | WPDUROPN2 ---
Progress Note: A&P Assessment and Plan (1) Calculus, kidney: Code(s): N20.0 - Calculus of kidney Status: Acute Assessment and Plan: right staghorn (2) UTI (urinary tract infection): Qualifiers: Hematuria presence: with hematuria Urinary tract infection type: acute cystitis Qualified Code(s): N30.01 - Acute cystitis with hematuria Code(s): N39.0 - Urinary tract infection, site not specified Status: Acute Assessment and Plan: proteus (3) Right distal ureteral calculus: Code(s): N20.1 - Calculus of ureter Status: Acute Assessment and Plan: stent in place Plan home on 2 weeks PO ABX. she has a contact for a urologist in [facility] Subjective Date/Time Seen: 06/27/23 13:08 Interval history: Telehealth encounter. 12 min total Tolerating stent Objective Data Vital Signs Vital Signs: Vital Signs - 24 hr 06/26/23 15:14 06/26/23 16:04 06/26/23 22:07 Temperature 97.8 F 98.6 F Pulse Rate 89 78 77 Respiratory Rate 18 20 Blood Pressure 127/88 117/88 Pulse Oximetry 100 98 Oxygen Delivery 06/26/23 20:00 06/27/23 00:00 06/27/23 04:00 Temperature Pulse Rate 112 H 95 67 Respiratory Rate Blood Pressure Pulse Oximetry Oxygen Delivery 06/27/23 06:00 06/27/23 09:00 Temperature 98.4 F Pulse Rate 72 Respiratory Rate 70 H Blood Pressure 135/91 H Pulse Oximetry 99 Oxygen Delivery Room Air Intake/Output Intake/Output: Intake & Output 06/24/23 06/25/23 06/26/23 06/27/23 23:59 23:59 23:59 23:59 Intake Total 2049 2890 1022 440 Output Total 1900 1815 700 Balance 2049 042 -358 -207 Meds/Results Medications: Active Medications Generic Name Dose Route Start Last Admin Trade Name Freq PRN Reason Stop Dose Admin Acetaminophen 650 mg 06/24/23 21:56 06/26/23 15:08 Acetaminophen 325 Mg Tablet PO 650 mg Q4H PRN Administration Mild Pain (1-3) or Fever Hydrocodone Bitart/Acetaminophen 1 tab 06/24/23 21:57 06/26/23 17:03 Hydrocodone/Acetaminophen (*Crx) 5-325 Mg Tablet PO 1 tab Q6H PRN Administration Pain Rated 4-6 Bupropion HCl 300 mg 06/25/23 09:00 06/27/23 09:05 Bupropion Hcl Xl (24 Hr) 150 Mg Tabcr PO 300 mg DAILY KELI Administration Escitalopram Oxalate 20 mg 06/25/23 09:00 06/27/23 09:06 Escitalopram Oxalate 10 Mg Tablet PO 20 mg DAILY KELI Administration Ceftriaxone Sodium 1 gm in 50 mls @ 100 mls/hr 06/25/23 18:00 06/26/23 17:05 Rocephin 1 Gm/Ns 50 Ml IVPB 100 mls/hr Q24H KELI Administration Miscellaneous Information 1 each 06/25/23 00:01 Dextroamphetamine-Amphetamine 20 Mg Tablet Is Nonformulary. Can She Use Home Supply? XX 07/25/23 00:00 CLARIFY [facility] Morphine Sulfate 4 mg 06/24/23 19:24 06/25/23 21:43 Morphine Sulfate (*Crx) 4 Mg/Ml Inj IV PUSH 4 mg Q2H PRN Administration Pain Rated 7-10 Non-Formulary Medication 20 mg 06/26/23 09:00 Dextroamphetamine-Amphetamine PO 07/26/23 08:59 DAILY [facility] Ondansetron HCl 4 mg 06/24/23 19:24 06/26/23 22:43 Ondansetron Inj 4 Mg/2 Ml Vial IV PUSH 4 mg Q4H PRN Administration Nausea Oxybutynin Chloride 5 mg 06/25/23 10:54 Oxybutynin Chloride 5 Mg Tablet PO TID PRN Abdominal Cramping/Bladder Radiology Results: ITS Impressions Abdomen/Pelvis CT 06/24/23 17:31 IMPRESSION: 1. Right nephrolithiasis including a large staghorn calculus at the upper pole and a 3 mm stone near the right ureterovesicular junction without hydronephrosis but with urothelial thickening along the right ureter suggesting possible ascending urinary tract infection. 2. Partially calcified fibroid in the posterior body of the uterus which exerts mass effect upon an IUD. 3. 1.3 cm densely sclerotic lesion at the supra-acetabular right ilium new since 2010, possibly a bone island but could consider further evaluation with bone scan particularly if there i
--- NOTE | 2023-06-27 13:36 | PM.DS ---
DS: Admitting Diagnosis Discharge Date 06/27/2023 Admitting Diagnosis Flank pain DS: Discharge Diagnosis Discharge Diagnosis (1) UTI (urinary tract infection): Qualifiers: Hematuria presence: with hematuria Urinary tract infection type: acute cystitis Qualified Code(s): N30.01 - Acute cystitis with hematuria Code(s): N39.0 - Urinary tract infection, site not specified Status: Acute (2) Ureterolithiasis: Code(s): N20.1 - Calculus of ureter Status: Acute (3) Fibroid, uterine: Qualifiers: Uterine leiomyoma location: unspecified location Qualified Code(s): D25.9 - Leiomyoma of uterus, unspecified Code(s): D25.9 - Leiomyoma of uterus, unspecified Status: Acute (4) Hepatic steatosis: Code(s): K76.0 - Fatty (change of) liver, not elsewhere classified Status: Acute (5) Bone lesion: Code(s): M89.9 - Disorder of bone, unspecified Status: Acute DS: Summary Hospital Course Hospital Course: 33-year-old female for right-sided flank pain right upper quadrant associated nausea and chills History of ADD anxiety depression Workup revealed leukocytosis 14 point normal LFTs except for bilirubin 1 6 UA positive for UTI with hematuria.? COVID flu RSV negative.? Chest x-ray without acute cardiopulmonary abnormality.? negative CT abdomen pelvis showed right nephrolithiasis including a large staghorn calculus of the upper pole and 3 mm stone near the right UVJ without hydronephrosis but with urothelial thickening along the right ureter suggesting possible ascending ureter tract infection.? Lactic acid is normal.? Blood cultures were obtained.? Status post right ureteral stent placement.? Need follow-up with Urology as an outpatient basis for more definitive treatment for renal stones. Blood culture no growth to date urine culture with Proteus vulgaris. Switch to Cipro at discharge. Partially calcified fibroid in posterior body of the uterus which exerts mass effect on IUD.? Follow-up as an outpatient basis 1.3 cm densely sclerotic lesion in the supra-acetabular right ilium new since 2010 possibly a bone island but could consider further evaluation with bone scan as outpatient basis. Diffuse hepatic steatosis DVT Prophylaxis Time Spent with Patient Time attestation: Total time spent providing and/or coordinating discharge services: 35 minutes Exam Narrative: GENERAL: Well-appearing, well-nourished, and in no acute distress. patient resting comfortably in exam bed.? She is pleasant and conversational. Non-toxic appearing HEAD: Normocephalic, atraumatic. EYES: PERRLA and EOMI. ENT: Nares clear, no rhinorrhea or epistaxis. Mucous membranes moist. NECK: Supple. CHEST: Clear to auscultation. No respiratory distress. HEART: Regular rate and rhythm. No murmur heard. Normal peripheral pulses. ABDOMEN: ? Normoactive bowel sounds.? Abdomen soft nontender No guarding, rebound or rigidity.? No CVA tenderness. negative Holman's.? No overlying skin changes. EXTREMITIES: Normal range of motion. No edema. SKIN: Warm, dry, no rash. NEURO: No focal deficits. Alert and oriented x3 DS: Data Data Completed and Pending Labs on day of discharge: Labs from last 24 hours 06/27/23 05:27 WBC 5.5 RBC 3.95 L Hgb 11.1 L Hct 34.1 L MCV 86.3 MCH 28.1 MCHC 32.6 RDW 12.6 Plt Count 232 MPV 10.1 Immature Gran % (Auto) 0.2 Neut % (Auto) 54.7 Lymph % (Auto) 28.7 [place] % (Auto) 13.4 H Eos % (Auto) 2.5 Baso % (Auto) 0.5 Lymph # (Auto) 1.59 [place] # (Auto) 0.7 H Eos # (Auto) 0.1 Baso # (Auto) 0.0 Abs Immat Gran (auto) 0.01 Absolute Neuts (auto) 3.0 Absolute Nucleated RBC 0.0 Nucleated RBC % 0.0 Sodium 136 L Potassium 3.4 Chloride 104 Carbon Dioxide 26 Anion Gap 6 L BUN 7 Creatinine 0.70 Estim Creat Clear Calc 116 Estimated GFR > 60 Glucose 100 Calcium 8.9 Magnesium 2.0 Total Bilirubin 0.5 AST 32 ALT 35 Alkaline Phospha
== END 2023-06-27 14:35 | disposition home or self-care (01) ==
LOC: ANHED 19:23 → ANH3MED 06-27 13:36
PROVIDERS: Emergency Medicine; Student in an Organized Health Care Education/Training Program; Urology; Admitting Provider General Practice; Emergency Provider Physician Assistant; Visit Provider Internal Medicine
PROC: (CPT 52352; principal; 2023-06-25 10:30)
DX: N20.1 Calculus of ureter (principal); N20.0 Calculus of kidney; N30.01 Acute cystitis with hematuria; B96.4 Proteus (mirabilis) (morganii) as the cause of diseases classified elsewhere; D25.9 Leiomyoma of uterus, unspecified; M89.9 Disorder of bone, unspecified; R82.90 Unspecified abnormal findings in urine; F98.8 Other specified behavioral and emotional disorders with onset usually occurring in childhood and adolescence; R63.0 Anorexia; Z68.36 Body mass index [BMI] 36.0-36.9, adult; Z20.822 Contact with and (suspected) exposure to COVID-19; K76.0 Fatty (change of) liver, not elsewhere classified; F41.9 Anxiety disorder, unspecified; F32.A Depression, unspecified; F10.90 Alcohol use, unspecified, uncomplicated; Z87.448 Personal history of other diseases of urinary system; Z79.899 Other long term (current) drug therapy
CPT/HCPCS: 52332; 36415; 71046; 74176; 74420; 80048; 80053; 80061; 81001; 81003; 81025; 83036; 83605; 83690; 83735; 85025; 85610; 85730; 86803; 87040; 87077; 87086; 87186; 87637; 96360; 96361; 96365; 96375; 99285; A9270; C1758; C1769; C2617; G0378; J0696; J2250; J2270; J2405; J2704; J3010; J7030; J7120; Q9966